=== PATIENT | male | born 1980 | race African-American/Black ===

== ENCOUNTER 2018-05-18 14:11 | Emergency (ER) | payer SELFPAY ==
[~2018-05-18] VITALS: Ht 185.4 cm; Wt 77.0 kg
[2018-05-18 20:02] VITALS: BP 140/82
== END 2018-05-18 18:09 | disposition left against medical advice (07) ==
LOC: ER 14:11
DX: Z53.21 Procedure and treatment not carried out due to patient leaving prior to being seen by health care provider (principal)